=== PATIENT | female | born 1945 | race African-American/Black ===

== ENCOUNTER → 2017-04-29 | Day surgery (SDC) | payer OTHER ==
[~2017-04-29] VITALS: Ht 162.6 cm; Wt 119.7 kg
[~2017-04-29] MED LIST: ADVAIR 250-501 EACH INH; ADVAIR DISKUS 21 DSK PO; ALBUTEROL2.5 MG/3 M INH/SOL; ASPIR 8181 MG PO; ASPIRIN EC325 M2 PO; ASPIRIN EC81 M1 PO; ATORVASTATIN CA40 MG PO; CARISOPRODOL350 MG PO; CIPRODEX 0.3%-7.5 ML AS; COZAAR 50MG TAB50 MG PO; CRESTOR20 M2 PO; CRESTOR20 MG PO; DIOVAN 40 MG40 MG PO; DIOVAN HCT 12.51 TA1 PO; DIOVAN HCT 1601 EAC1 PO; FISH OIL1000 MG PO; FLEXERIL10 MG PO; FUROSEMIDE20 M1 PO; FUROSEMIDE40 M1 PO; LASIX20 MG PO; LINZESS290 MC1 PO; LINZESS290 MCG PO; LOPRESSOR 6.26.25 MG PO; MACROBID100 MG PO; METFORMIN HCL500 M2 PO; METFORMIN HCL500 M3 PO; METFORMIN HYDR500 MG PO; MOMETASONE FUROA0.1% TOP; NASONEX0.05 MG/Ac NAS; NASONEX17 GM NASB; NEXIUM 40MG40 MG PO; NEXIUM40 M1 PO; OXYCODONE HCL15 MG PO; OXYCODONE HCL20 M1 PO; OXYCODONE HCL20 M2 PO; OXYCONTIN15 MG PO; PERCOCET 325 MG1 TA2 PO; POTASSIUM CHLO10 ME4 PO; POTASSIUM CHLO20 ME2 PO; PROAIR HFA8.5 GM INH; RESTASIS 0.4 M0.4 ML OPH; RESTASIS1 EACH OPH; ROXICODONE15 M1 PO; SYMBICORT 16010.2 GM INH; TRAMADOL HCL50 MG PO; TYLENOL TAB 32325 MG PO; VICODIN 500 MG-1 TAB PO; VITAMIN D1000 IU PO; VITAMIN D1000 UNIT PO; VOLTAREN100 GM TOP
--- NOTE | 2017-04-30 18:30 | Operative Report ---
See Addendum Operative/Inv Procedure Report Surgery Date: 04/29/17 Name of Procedure: Laparoscopic mesh repair of left inguinal hernia, TEPP Open anterior mesh repair of incarcerated umbilical hernia Pre-Operative Diagnosis: Left inguinal hernia, incarcerated umbilical hernia Post-Operative Diagnosis: Same, inguinal is direct Estimated Blood Loss: scant Surgeon/Benefits Specialist: Janis ALLEN,Gabriele WHITE Anesthesia: general endotracheal tube Operative/Procedure Note Note: Patient was positioned supine on the table. After successful induction of general anesthesia the inguinal and surrounding areas were clipped prepped and draped in the usual sterile fashion. After injection of local anesthetic at the bottom of the umbilicus off the midline to the left, a 1 1/2 cm curved incision was made with a 15 blade, then deepened through Blue's fascia, sweeping off the rectus sheath. A horizontal 1-1/2 cm incision was made between the fibers, elevating these edges with 0 Vicryl stay sutures. Then retracting the muscle laterally, clearing off the posterior rectus sheath, this space is developed down the midline to the pubis sequentially, with an S retractor, a peanut dissector, then the balloon-camera device, inflating it 30-40 pumps while watching how it opens up the space, keeping the epigastrics up. The balloon is then replaced with a 10 mm Chapman trocar, inserted, shortened, and secured with the stay sutures, gas turned on to 12 not 15 mm. Then two 5 mm trochars are inserted in the midline just below the camera, spaced by approximately 3 cm. Using mostly blunt dissection with peanuts to define the anatomy, first Shahbaz's ligament is swept off medially, checking the medial spaces, direct and femoral. Then we returned to the area medial to the fat pad where the hernia sac was adherent, coursing up just medial to the vein, up through the defect. The hernia sac and contents was reduced and that lip of peritoneum was swept down and proximally to the level of the bladder and off the round ligament a little laterally. The round ligament was from the underlying iliac fat. A Parietex sided mesh without the suture, is marked and stuffed down the camera trocar, then unfurled in a systematic fashion, covering medially over Shahbaz's ligament, laterally over the ileal pubic tract to the area of the iliac crest and superiorly towards the camera. There is a seemed bottom part of the mesh, that covers the iliac fat pad like a skirt, and also you tuck it in and over the bladder. The mesh was adjusted back and forth so that covers both the deep ring and the direct defect with margin and importantly lays flat and the edges are not curling. A trial run of letting the gas escape a little bit to see how the mesh would lay as the peritoneum comes back down is done, then when we're satisfied, we let rest of the gas escape, pulling out the instruments and trochars. The fascia is closed with a [id number] 0 Vicryl suture, tying the stay sutures on top. We used the same umbilical incision for the umbilical hernia repair. This was deepened with cautery, the umbilical stalk was dissected circumferentially and the herniated fat and overlying sac were dissected circumferentially off the fascia, defining the true edges of the defect. It was oriented horizontally, we then inserted the Ventralex coated 4.3 centimeter mesh underneath the defect using the tails to center it and then closed the defect with interrupted 2-0 Maxon sutures in this case 4, incorporating the mesh with each bite. The subcutaneous layer and Blue's fascia were reapproximated to cover. The incision was irrigated and then we closed the 3 skin incisions with interrupted 4-0 Monocryl, 3 for the umbilical, one each for the smaller ones, followed by Mastisol, Steri-Strips and Band-Aids. Overall estimated blood loss was minimal, lap and sponge counts were correct, wound expectancy was clean, IV fluids crystalloid, complications none, patient tolerated the procedure well, did not significantly snell during extubation and was returned to the recovery room in satisfactory condition.
== END ==
LOC: STS 00:50
DX: K40.90 Unilateral inguinal hernia, without obstruction or gangrene, not specified as recurrent (principal); K42.0 Umbilical hernia with obstruction, without gangrene; I10 Essential (primary) hypertension; E11.8 Type 2 diabetes mellitus with unspecified complications; Z79.84 Long term (current) use of oral hypoglycemic drugs; J44.9 Chronic obstructive pulmonary disease, unspecified; I51.9 Heart disease, unspecified; Z86.73 Personal history of transient ischemic attack (TIA), and cerebral infarction without residual deficits; Z79.82 Long term (current) use of aspirin; Z87.891 Personal history of nicotine dependence
CPT/HCPCS: C1781; C9399; J0131; J2250; J2405